=== PATIENT | female | born 1960 | race Caucasian/White ===

== ENCOUNTER 2017-04-22 07:17 | Day surgery (SDC) | payer OTHER ==
[2017-04-22] MEDS ORDERED: LACTATED RINGERS 1,000 ML IV ONE ×2 (07:28→09:21)
[2017-04-22] MEDS ORDERED: MIDAZOLAM 2 MG/2 ML VIAL IVP ONE (08:43)
[2017-04-22] MEDS ORDERED: fentaNYL 100 MCG/2 ML VIAL IVP ONE (08:43)
[2017-04-22 09:45] VITALS: BP 122/73
--- NOTE | 2017-04-22 09:55 | PROCEDURE REPORT ---
REVISED: THIS REPORT WAS ORIGINALLY SIGNED ON 04/23/2017 @ 1506. PRIMARY CARE PROVIDER FIELD REVISED ON 04/29/2017. DATE OF PROCEDURE: 04/22/2017 00:00:00 PROCEDURE: Colonoscopy. ENDOSCOPIST: Chepe Amador MD. PRIMARY CARE: Titus Elkins MD. INDICATION: History of colon polyps. PREMEDICATIONS: Fentanyl 100 mcg, Versed 4 mg IV titration. After informed consent was obtained, the patient was placed in the left lateral decubitus position. The video colonoscope was introduced in the rectum, slowly advanced to the cecum. On slow withdrawal, the mucosa was carefully examined. The scope was removed. The patient tolerated the procedure well. BLOOD LOSS: None. COMPLICATIONS: None. FINDINGS 1. A 5 mm sigmoid polyp jumbo biopsied and removed completely. 2. Otherwise negative colonoscopy to cecum. We will await biopsy results, but the patient should have a followup colonoscopy in 5 years. JOB #: [id number] EXT JOB #:[id number] MTDD
== END 2017-04-22 07:18 | disposition home or self-care (01) ==
LOC: SDS 07:17
PROVIDERS: ATTEND Internal Medicine Gastroenterology
PROC: 0DBN8ZX Excision of Sigmoid Colon, Via Natural or Artificial Opening Endoscopic, Diagnostic (ICD-10-PCS; principal; 2017-04-22 08:30)
DX: K63.5 Polyp of colon (principal); E03.9 Hypothyroidism, unspecified; F32.9 Major depressive disorder, single episode, unspecified
CPT/HCPCS: 45380; 88305; J7120

== ENCOUNTER 2023-08-06 08:18 | Outpatient (CLI) | payer OTHER ==
--- NOTE | 2023-08-14 11:48 | Mammography Report ---
BILATERAL DIGITAL SCREENING MAMMOGRAM 3D/2D: 08/06/2023 CLINICAL: Routine screening. No prior exams were available for comparison. Both breasts are heterogeneously dense, which may obscure small masses (category c / 51-75% glandular tissue). There is an oval asymmetry with an obscured and circumscribed margin in the right breast posterior de pth superior region seen on the mediolateral oblique view only. No other significant masses, calcifications, or other findings are seen in either breast. IMPRESSION: INCOMPLETE: NEEDS ADDITIONAL IMAGING EVALUATION The oval asymmetry in the right breast is indeterminate. Additional views with possible ultrasound are recommended. Based on the Tyrer Cuzick model (a risk assessment model) the patients lifetime risk is 7.6% and her 10 year risk is 3.4%. According to the ACR, ACS, and NCCN guidelines, an annual breast MRI exam pablo g with mammogram is recommended if the patients lifetime risk is 20% or greater. This exam was interpreted at Station ID: [id number]. NOTE: For mammograms, a report in lay terms will be sent to the patient. Approximately 15% of breast malignancies will not be visualized mammographically. In the management of a palpable breast mass, a negative mammogram must not discourage biopsy of a clinically suspicious lesion. Electronically Signed By: Rich Mckeon M.D. slc/:08/13/2023 15:12:58 ACR BI-RADS Category 0: Incomplete 3340F PARENCHYMAL PATTERN: (D) - The breast(s) demonstrate(s) heterogeneously dense fibroglandular parenchy ma. BI-RADS CATEGORY: (0) - 0 Mammo and US [id number] Immediate follow-up LATERALITY: (B)
== END 2023-08-06 08:19 | disposition home or self-care (01) ==
LOC: DI.N 08:18
DX: Z12.31 Encounter for screening mammogram for malignant neoplasm of breast (principal); R92.333 Mammographic heterogeneous density, bilateral breasts; R92.8 Other abnormal and inconclusive findings on diagnostic imaging of breast

== ENCOUNTER 2023-09-04 10:07 | Outpatient (CLI) | payer OTHER ==
--- NOTE | 2023-09-07 10:13 | Mammography Report ---
UNILATERAL RIGHT DIGITAL DIAGNOSTIC MAMMOGRAM 3D/2D WITH LATEROMEDIAL SPOT COMPRESSION: 09/04/2023 CLINICAL: Patient returns today to evaluate an asymmetry in the right breast. Comparison is made to exam dated: 08/06/2023 mammogram - [facility]. The right breast is heterogeneously dense, which may obscure small masses (category c / 51-75% glandu lar tissue). There is an oval asymmetry with an obscured and circumscribed margin in the right breast posterior de pth superior region seen on the mediolateral oblique view only. This is not significantly changed. No other significant masses or calcifications are seen in the breast. IMPRESSION: INCOMPLETE: NEEDS ADDITIONAL IMAGING EVALUATION The oval asymmetry in the right breast resembles a cyst or a lymph node and is indeterminate. An ul trasound is recommended for further evaluation and is scheduled to immediately follow this examrayatio n. Based on the Tyrer Cuzick model (a risk assessment model) the patients lifetime risk is 7.6% and her 10 year risk is 3.4%. According to the ACR, ACS, and NCCN guidelines, an annual breast MRI exam along with mammogram is recommended if the patients lifetime risk is 20% or greater. This exam was interpreted at Station ID: [id number]. NOTE: For mammograms, a report in lay terms will be sent to the patient. Approximately 15% of breast malignancies will not be visualized mammographically. In the management of a palpable breast mass, a negative mammogram must not discourage biopsy of a clinically suspicious lesion. Electronically Signed By: Nic Bucio M.D. aty/:09/04/2023 12:30:36 ACR BI-RADS Category 0: Incomplete 3340F PARENCHYMAL PATTERN: (D) - The breast(s) demonstrate(s) heterogeneously dense fibroglandular pardorcas [place]. BI-RADS CATEGORY: (0) - 0 Ultrasound [id number] Immediate follow-up LATERALITY: (R)
--- NOTE | 2023-09-07 10:13 | Ultrasound Report ---
LIMITED ULTRASOUND OF RIGHT BREAST: 09/04/2023 CLINICAL: Patient returns today to evaluate a focal asymmetry in the right breast. Comparison is made to exam dated: 08/06/2023 mammogram - [facility]. Color flow ultrasound of the right breast 10-12 o'clock region was performed. Medeiros scale images of t he real-time examination were reviewed. There is a 0.8 cm x 0.4 cm x 0.3 cm wider than tall oval mass with a circumscribed margin in the righ t breast at 10 o'clock middle depth 5 cm from the nipple. This oval mass is hypoechoic. This correl ates with mammography findings. IMPRESSION: PROBABLY BENIGN The 0.8 cm x 0.4 cm x 0.3 cm wider than tall oval mass in the right breast resembles a lymph node and is probably benign. A follow-up right mammogram and a right ultrasound in 6 months is recommended to demonstrate stabilit y. Findings and recommendations were conveyed to the patient during today's evaluation. This exam was interpreted at Station ID: [id number]. Electronically Signed By: Nic Bucio M.D. aty/:09/04/2023 12:32:32 Ultrasound BI-RADS: 3 Probably benign BI-RADS CATEGORY: (3) - 3 Mammo and US [id number] 6 month follow-up LATERALITY: (R)
== END 2023-09-04 10:08 | disposition home or self-care (01) ==
LOC: DI 10:07
PROVIDERS: ATTEND Nurse Practitioner Family
DX: R92.331 Mammographic heterogeneous density, right breast (principal); N63.11 Unspecified lump in the right breast, upper outer quadrant

== ENCOUNTER 2024-05-02 12:25 | Outpatient (CLI) | payer OTHER ==
--- NOTE | 2024-05-04 15:31 | Mammography Report ---
UNILATERAL RIGHT DIGITAL DIAGNOSTIC MAMMOGRAM 3D/2D WITH EXAGGERATED CC LATEROMEDIAL: 05/02/2024 CLINICAL: Patient returns for a 6 month follow up of the right breast. Comparison is made to exams dated: 09/04/2023 mammogram and 08/06/2023 mammogram - [facility]. The breasts are heterogeneously dense, which may obscure small masses (category c / 51-75% glandular tissue). There is an asymmetry in the upper posterior breast on MLO view, which triangulates to the upper oute r quadrant on tomosynthesis views. This finding is not significantly changed since baseline screening mammogram on 08/06/2023. No other significant masses or calcifications are seen in the breast. IMPRESSION: INCOMPLETE: NEED ADDITIONAL IMAGING EVALUATION Right breast asymmetry in the upper posterior breast seen on MLO view, stable since baseline screenin g mammogram on 08/06/2023. An ultrasound is recommended for further evaluation and is scheduled to im mediately follow this examination. Based on the Tyrer Cuzick model (a risk assessment model) the patient's lifetime risk is 7.3% and her 10 year risk is 3.4%. According to the ACR, ACS, and NCCN guidelines, an annual breast MRI exam pablo g with mammogram is recommended if the patient's lifetime risk is 20% or greater. This exam was interpreted at Station ID: [id number]. NOTE: For mammograms, a report in lay terms will be sent to the patient. Approximately 15% of breast malignancies will not be visualized mammographically. In the management of a palpable breast mass, a negative mammogram must not discourage biopsy of a clinically suspicious lesion. Electronically Signed By: Lauren Fernando M.D., Ph.D. eb/:05/02/2024 13:14:46 ACR BI-RADS Category 0: Incomplete: Need Additional Imaging Evaluation 3340F PARENCHYMAL PATTERN: (D) - The breast(s) demonstrate(s) heterogeneously dense fibroglandular pardorcas [place]. BI-RADS CATEGORY: (0) - 0 Ultrasound [id number] Immediate follow-up LATERALITY: (B)
--- NOTE | 2024-05-04 15:31 | Ultrasound Report ---
LIMITED ULTRASOUND OF RIGHT BREAST: 05/02/2024 CLINICAL: Patient returns for a 6 month follow up of the right breast. Comparison is made to exams dated: 09/04/2023 ultrasound, 09/04/2023 mammogram, and 08/06/2023 mammogr [facility]. Color flow ultrasound of the right breast 10 o'clock region was performed. Medeiros scale images of the real-time examination were reviewed. There is a 0.8 cm x 0.4 cm x 0.3 cm wider than tall oval mass with a circumscribed margin in the righ t breast at 10 o'clock, 5 cm from the nipple. This oval mass is hypoechoic. This likely correlates with mammography findings and is stable since 09/04/2023. IMPRESSION: PROBABLY BENIGN Right breast 0.8 cm oval circumscribed mass at 10 o'clock, stable since 09/04/2023. Finding resembles a lymph node and is probably benign. Recommend follow-up mammogram and ultrasound in 4 months to dem onstrate 1 year stability (August 2024) when patient will be due for bilateral mammogram. Findings and recommendations were conveyed to the patient during today's evaluation. This exam was interpreted at Station ID: [id number]. Electronically Signed By: Lauren Fernando M.D., Ph.D. eb/:05/02/2024 16:46:13 ACR BI-RADS Category 3: Probably Benign 3343F BI-RADS CATEGORY: (3) - 3 Mammo and [place] [id number] 3 month follow-up LATERALITY: (B)
== END 2024-05-02 12:26 | disposition home or self-care (01) ==
LOC: DI 12:25
PROVIDERS: ATTEND Nurse Practitioner Family
DX: N63.11 Unspecified lump in the right breast, upper outer quadrant (principal); R92.331 Mammographic heterogeneous density, right breast